=== PATIENT | male | born 1950 | race Asian ===

== ENCOUNTER 2020-10-11 10:34 | Outpatient (CLI) | payer BC ==
[~2020-10-11] VITALS: Ht 177.8 cm; Wt 70.9 kg
[2020-10-11] VITALS (12 sets, daily range): BP systolic 93–142; BP diastolic 58–97; PULSE 57–74
[2020-10-11 11:18] LABS: BASO # 0.1 (0.0-0.2); BASO % 1.3 % (0.0-2.0); EOS # 0.4 (0.0-0.7); EOS % 7.9 % (0-4.0); GRAN # 2.7 (1.4-6.5); HEMATOCRIT 38.7 % (42.0-52.0); LYMPH # 1.6 (1.2-3.4); LYMPH % 29.9 % (20.0-51.0); MEAN CELL VOLUME 99 fl (80.0-100.0); MEAN CORPUSCULAR HEMOGLOBIN 33 pg (27.0-31.0); MEAN CORPUSCULAR HGB CONC 34 g/dl (33.0-37.0); MEAN PLATELET VOLUME 10.2 fl (7.4-10.4); MONO # 0.6 (0.1-0.6); MONO % 11.7 % (1.7-9.3); PLATELET COUNT 192 K/mm3 (130-400); RED BLOOD COUNT 3.92 M/mm3 (4.20-5.60)
[2020-10-11] MEDS ORDERED: CRESTOR 10MG10 MG PO (11:23)
[2020-10-11] MEDS ORDERED: RT ADVAIR 228 DISKUS IH (11:24)
[2020-10-11] MEDS ORDERED: SINGULAIR 110 MG/TAB PO (11:24)
[2020-10-11] MEDS ORDERED: VITAMIN C500 MG PO (11:25)
[2020-10-11] MEDS ORDERED: EPA FISH OIL1 SGL PO (11:25)
[2020-10-11 11:26] LABS: CALCIUM 9.3 mg/dL (8.4-10.2); CREATININE, serum 0.81 (0.66-1.25); POTASSIUM 4.1 mmol/L (3.4-5.0)
[2020-10-11 11:27] LABS: INR 1.1 (0.8-3.0)
--- NOTE | 2020-10-11 12:32 | NUR ---
SHAYNE COMPLETED AT BEDSIDE. 1214 - TIMEOUT 1216 - SHAYNE PROBE IN 03/24 - SHAYNE PROBE OUT
--- NOTE | 2020-10-11 12:42 | NUR ---
S/P SHAYNE REPORT TO BUSTER HIGGINBOTHAM.
--- NOTE | 2020-10-11 14:34 | NUR ---
DC instructions reviewed with pt. He expresses understanding. Pt steady of feet. Has tolerated PO without issue. INT DC'd with catheter intact. Pt refuses wheelchair, and is escorted out to elevator, waiting to pear picker pt.
== END 2020-10-11 14:40 | disposition home or self-care (01) ==
LOC: COL.RAD 10:34
PROVIDERS: Internal Medicine Cardiovascular Disease
DX: I35.0 Nonrheumatic aortic (valve) stenosis (principal)
CPT/HCPCS: J2704

== ENCOUNTER 2020-11-04 14:24 | Outpatient (CLI) | payer BC ==
[~2020-11-04] VITALS: Ht 177.8 cm; Wt 75.6 kg
[~2020-11-04 14:24] MED LIST: CRESTOR 10MG10 MG PO; EPA FISH OIL1 SGL PO; RT ADVAIR 228 DISKUS IH; SINGULAIR 110 MG/TAB PO; VITAMIN C500 MG PO
[2020-11-04 14:29] VITALS: BP 128/57; PULSE 77; TEMP 98.8
== END 2020-11-04 16:30 | disposition home or self-care (01) ==
LOC: EUO 14:24
DX: J45.50 Severe persistent asthma, uncomplicated (principal); Z79.899 Other long term (current) drug therapy
CPT/HCPCS: J2357

== ENCOUNTER 2020-12-02 14:55 | Outpatient (CLI) | payer BC ==
[~2020-12-02] VITALS: Ht 177.8 cm; Wt 75.9 kg
[2020-12-02 14:52] VITALS: BP 132/50; PULSE 68; TEMP 98.7
[2020-12-02] MEDS ORDERED: XOLAIR150 MG/1 M SQ (14:56)
== END 2020-12-02 17:34 | disposition home or self-care (01) ==
LOC: EUO 14:55
DX: J45.50 Severe persistent asthma, uncomplicated (principal); Z79.899 Other long term (current) drug therapy
CPT/HCPCS: J2357

== ENCOUNTER 2020-12-30 14:17 | Outpatient (CLI) | payer BC ==
[~2020-12-30] VITALS: Ht 177.8 cm; Wt 74.3 kg
[~2020-12-30 14:17] MED LIST changes: +XOLAIR150 MG/1 M SQ
[2020-12-30] MEDS ORDERED: VITAMIN D31000 I1 PO (14:19)
[2020-12-30 14:21] VITALS: BP 151/63; PULSE 61; TEMP 98.1
== END 2020-12-30 14:38 | disposition home or self-care (01) ==
LOC: EUO 14:17
DX: J45.50 Severe persistent asthma, uncomplicated (principal); Z79.899 Other long term (current) drug therapy
CPT/HCPCS: J2357

== ENCOUNTER 2021-01-27 14:13 | Outpatient (CLI) | payer BC ==
[~2021-01-27] VITALS: Ht 177.8 cm; Wt 75.2 kg
[~2021-01-27 14:13] MED LIST changes: +VITAMIN D31000 I1 PO
[2021-01-27 14:21] VITALS: BP 130/55; PULSE 62; TEMP 98.4
== END 2021-01-27 15:00 | disposition home or self-care (01) ==
LOC: EUO 14:13
DX: J45.50 Severe persistent asthma, uncomplicated (principal)
CPT/HCPCS: J2357

== ENCOUNTER 2021-02-27 14:45 | Outpatient (CLI) | payer BC ==
[~2021-02-27] VITALS: Ht 177.8 cm; Wt 76.4 kg
[2021-02-27 14:39] VITALS: BP 129/60; PULSE 61; TEMP 99
== END 2021-03-01 09:52 ==
LOC: EUO 14:45
DX: J82.83 Eosinophilic asthma (principal); Z79.899 Other long term (current) drug therapy
CPT/HCPCS: J2357

== ENCOUNTER 2021-04-27 14:55 | Outpatient (CLI) | payer BC ==
[~2021-04-27] VITALS: Ht 177.8 cm; Wt 75.6 kg
[2021-04-27 15:36] VITALS: BP 141/55; PULSE 59; TEMP 98.2
== END 2021-04-27 15:36 ==
LOC: EUO 14:55
DX: J45.50 Severe persistent asthma, uncomplicated (principal); Z79.899 Other long term (current) drug therapy

== ENCOUNTER 2021-05-26 13:57 | Outpatient (CLI) | payer BC ==
[~2021-05-26] VITALS: Ht 177.8 cm; Wt 77.0 kg
[2021-05-26 14:23] VITALS: BP 124/66; PULSE 59
== END 2021-05-26 16:32 | disposition home or self-care (01) ==
LOC: EUO 13:57
DX: J45.50 Severe persistent asthma, uncomplicated (principal)
CPT/HCPCS: J2357

== ENCOUNTER 2021-06-23 14:08 | Outpatient (CLI) | payer BC ==
[~2021-06-23] VITALS: Ht 177.8 cm; Wt 75.8 kg
[2021-06-23 14:34] VITALS: BP 128/48; PULSE 67; TEMP 98.2
== END 2021-06-23 14:41 ==
LOC: EUO 14:08
DX: J45.50 Severe persistent asthma, uncomplicated (principal)
CPT/HCPCS: J2357

== ENCOUNTER 2021-07-21 13:30 | Outpatient (CLI) | payer BC ==
[~2021-07-21] VITALS: Ht 177.8 cm; Wt 75.2 kg
[2021-07-21 13:48] VITALS: BP 128/53; PULSE 63; TEMP 98.1
[2021-07-21] MEDS ORDERED: MIRTAZAPINE7.5 MG PO (13:51)
== END 2021-07-21 16:28 | disposition home or self-care (01) ==
LOC: EUO 13:30
DX: J82.83 Eosinophilic asthma (principal)

== ENCOUNTER 2021-08-18 14:09 | Outpatient (CLI) | payer BC ==
[~2021-08-18] VITALS: Ht 177.8 cm; Wt 76.9 kg
[~2021-08-18 14:09] MED LIST changes: +MIRTAZAPINE7.5 MG PO
[2021-08-18 14:39] VITALS: BP 131/55; PULSE 51; TEMP 98
== END 2021-08-18 15:00 | disposition home or self-care (01) ==
LOC: EUO 14:09
DX: J45.50 Severe persistent asthma, uncomplicated (principal)

== ENCOUNTER → 2021-09-20 | Outpatient (CLI) | payer BC ==
[~2021-09-20] VITALS: Ht 177.8 cm; Wt 78.4 kg
[2021-09-20 14:57] VITALS: BP 122/58; PULSE 74; TEMP 98.2
== END ==
LOC: EUO 09-18 14:00
DX: J45.50 Severe persistent asthma, uncomplicated (principal)

== ENCOUNTER 2021-10-18 14:04 | Outpatient (CLI) | payer BC ==
[~2021-10-18] VITALS: Ht 177.8 cm; Wt 75.7 kg
[2021-10-18 14:20] VITALS: BP 148/75; PULSE 69; TEMP 98.2
[2021-10-18] MEDS ORDERED: ASPIRIN E.C. 8181 MG PO (14:27)
== END 2021-10-18 14:36 | disposition home or self-care (01) ==
LOC: EUO 14:04
DX: J45.50 Severe persistent asthma, uncomplicated (principal)
CPT/HCPCS: J2357

== ENCOUNTER 2021-11-15 11:09 | Outpatient (CLI) | payer BC ==
[~2021-11-15] VITALS: Ht 177.8 cm; Wt 73.4 kg
[~2021-11-15 11:09] MED LIST changes: +ASPIRIN E.C. 8181 MG PO
[2021-11-15 11:45] VITALS: BP 113/66; PULSE 60; TEMP 98.1
[2021-11-15] MEDS ORDERED: COLCRYS0.6 MG PO (12:47)
== END 2021-11-15 12:03 ==
LOC: EUO 11:09
DX: J82.83 Eosinophilic asthma (principal); Z79.899 Other long term (current) drug therapy
CPT/HCPCS: J2357

== ENCOUNTER 2021-12-15 14:08 | Outpatient (CLI) | payer BC ==
[~2021-12-15] VITALS: Ht 177.8 cm; Wt 75.7 kg
[~2021-12-15 14:08] MED LIST changes: +COLCRYS0.6 MG PO
[2021-12-15 14:36] VITALS: BP 106/59; PULSE 69; TEMP 98.1
== END 2021-12-15 15:00 | disposition home or self-care (01) ==
LOC: EUO 14:08
DX: J82.83 Eosinophilic asthma (principal)
CPT/HCPCS: J2357

== ENCOUNTER 2022-01-16 10:59 | Outpatient (CLI) | payer BC ==
[~2022-01-16] VITALS: Ht 177.8 cm; Wt 74.4 kg
[2022-01-16 11:44] VITALS: BP 118/60; PULSE 63; TEMP 97.8
== END 2022-01-16 11:52 | disposition home or self-care (01) ==
LOC: EUO 10:59
DX: J82.83 Eosinophilic asthma (principal)
CPT/HCPCS: J2357

== ENCOUNTER 2022-12-07 14:24 | Outpatient (CLI) | payer BC ==
[~2022-12-07] VITALS: Ht 177.8 cm; Wt 78.8 kg
[~2022-12-07 14:24] MED LIST changes: +MASON NATURAL2000 IU PO; -VITAMIN D31000 I1 PO
[2022-12-07 14:36] VITALS: BP 120/67; PULSE 71; TEMP 98.1
== END 2022-12-07 14:39 ==
LOC: EUO 14:24
DX: Z79.899 Other long term (current) drug therapy (principal)
CPT/HCPCS: J2357

== ENCOUNTER 2023-04-05 14:30 | Outpatient (CLI) | payer BC ==
[~2023-04-05] VITALS: Ht 177.8 cm; Wt 79.0 kg
[2023-04-05 14:30] VITALS: BP 135/72; PULSE 62; TEMP 97.7
--- NOTE | 2023-04-05 14:50 | NUR ---
pt tolerated injections well. vs remained within normal limits and pt remained free from acute concerns and complaints upon discharge.
== END 2023-04-05 14:51 | disposition home or self-care (01) ==
LOC: EUO 14:30
DX: J82.83 Eosinophilic asthma (principal)
CPT/HCPCS: J2357

== ENCOUNTER 2023-05-03 14:01 | Outpatient (CLI) | payer BC ==
[~2023-05-03] VITALS: Ht 177.8 cm; Wt 79.7 kg
[2023-05-03] MEDS ORDERED: OMALIZUMAB 150 MG/ML SQ SCH (14:30)
[2023-05-03 14:38] VITALS: BP 138/70; PULSE 62; TEMP 98.1
--- NOTE | 2023-05-03 14:52 | NUR ---
Pt tolerated xolair without issue. He exits dept with steady gait, free of complaints at time of discharge.
== END 2023-05-03 14:53 | disposition home or self-care (01) ==
LOC: EUO 14:01
DX: J82.83 Eosinophilic asthma (principal)
CPT/HCPCS: J2357